=== PATIENT | female | born 1970 | race Two or more races ===

== ENCOUNTER 2019-01-10 23:26 | Emergency (ER) | payer OTHER, BC ==
[2019-01-10 23:38] VITALS: BP 126/60; PULSE 69; TEMP 98.3; BMI 28.1
[2019-01-11] MEDS ORDERED: ACETAMINOPHEN 1000 MG/100 ML VIAL (NON FORMULARY) IVPB ONE (00:48)
[2019-01-11] MEDS ORDERED: FAMOTIDINE 20 MG/50 ML IVPB 20 MG/50 ML MG IVPB ONE ×2 (00:48→00:54)
[2019-01-11] MEDS ORDERED: SODIUM CHLORIDE 0.9% 500 ML INFUS.BAG IV ONE (00:48)
[2019-01-11] MEDS ORDERED: MAG HYDROX/AL HYDROX/SIMETH 30 ML UNIT-DOSE CUP PO ONE (00:49)
[2019-01-11] MEDS ORDERED: MAG HYDROX/AL HYDROX/SIMETH 30 ML UNIT-DOSE CUP ONE (00:53)
[2019-01-11] MEDS ORDERED: ACETAMINOPHEN INJECTION 100 ML IVPB ONE (00:53)
--- NOTE | 2019-01-11 01:07 | PDOC ---
History of Present Illness - General Chief Complaint: Pain Stated Complaint: STOMACH PAIN - History of Present Illness Initial Comments: The pt is a 48F w/ a history of PUD who presents for evaluation of abdominal pain for 6 hours. The pain is cramping/burning, non-radiating, constant since it started, is associated with nausea, and was not relieved by the nexium that she tried. She denies fevers/chills, V/C/D, chest pain, trouble breathing, dysuria, hematuria, or blood in her stool 01/11/19 01:28 Past History - Past Medical History Allergies/Adverse Reactions: Allergies Allergy/AdvReac Type Severity Reaction Status Date / Time No Known Drug Allergies Allergy Verified 01/10/19 23:38 Home Medications: Ambulatory Orders Ranitidine [Zantac -] 300 mg PO DAILY PRN #20 tablet 01/11/19 COPD: No - Suicide/Smoking/Psychosocial Hx Smoking History: Never smoked Have you smoked in the past 12 months: No Information on smoking cessation initiated: No Hx Alcohol Use: No Drug/Substance Use Hx: No Substance Use Type: Alcohol Review of Systems - Review of Systems Able to Perform ROS?: Yes Comments:: GENERAL/CONSTITUTIONAL: No fever or chills. No weakness HEAD, EYES, EARS, NOSE AND THROAT: No change in vision. No ear pain or discharge. No sore throat CARDIOVASCULAR: No chest pain or shortness of breath RESPIRATORY: Denies cough, hemoptysis GENITOURINARY: No dysuria, frequency, or change in urination MUSCULOSKELETAL: No joint or muscle swelling or pain. No neck or back pain SKIN: No rash NEUROLOGIC: No headache, vertigo, loss of consciousness, or change in strength/ sensation ENDOCRINE: No increased thirst. No abnormal weight change HEMATOLOGIC/LYMPHATIC: No anemia, easy bleeding, or history of blood clots ALLERGIC/IMMUNOLOGIC: No hives or skin allergy Is the patient limited [place] proficient: No *Physical Exam - Vital Signs Last Vital Signs Temp Pulse Resp BP Pulse Ox 98.3 F 69 19 126/60 100 01/10/19 23:36 01/10/19 23:36 01/10/19 23:36 01/10/19 23:36 01/10/19 23:36 - Physical Exam Comments: GENERAL: Awake, alert, and oriented to person/place/time, in no acute distress HEAD: No signs of trauma, normocephalic, atraumatic EYES: PERRLA, EOMI, sclera anicteric, conjunctiva clear ENT: Hearing grossly normal, nares patent, oropharynx clear without exudates. No uvular deviation. Moist mucosa LUNGS: No distress, speaks full sentences, clear to auscultation bilaterally HEART: Regular rate and rhythm, normal S1 and S2, no murmurs appreciated, peripheral pulses normal and equal bilaterally ABDOMEN: Soft, non-distended, mild epigastric TTP without rebound or guarding EXTREMITIES: Normal inspection, Normal range of motion, no edema. No clubbing or cyanosis NEUROLOGICAL: Cranial nerves II through XII grossly intact. Normal speech, normal gait, no focal sensorimotor deficits SKIN: Warm, Dry ED Treatment Course - LABORATORY CBC & Chemistry Diagram: 01/11/19 00:50 01/11/19 00:50 Medical Decision Making - Medical Decision Making The pt is a 48F w/ a history of PUD who presents for evaluation of 6 hours of burning epigastric pain Ddx includes PUD, gastritis/gastroenteritis, pancreatitis, biliary disease, GERD ; ACS/AAA considered but less likely as patient w/o chest pain, SOB, lightheadedness, VS wnl, and no history of HTN/cardiac disease ED Course Labs sent Maalox, Pepcid, Ofrimev for symptomatic relief 1L NS No leukocytosis No anemia Lytes wnl LFTs unremarkable Lipase wnl Patient feels improved s/p meds Plan for D/C w/ PCP f/u Rx for Zantac sent to pt's pharmacy Discharge instructions and return precautions given Pt in agreement and verbalized understanding Dispo: home *DC/Admit/Observation/Transfer Diagnosis at time of Disposition: Abdominal pain Qualifiers: Abdominal location: unspecified location Qualified Code(s): R10.9 - Unspecified abdominal pain - Discharge Dispostion Disposition: HOME Condition at time of disposition: Improved Decision to Admit order: No - Prescriptions Prescriptions: Ranitidine [Zantac -] 300 mg PO DAILY PRN #20 tablet PRN Reason: Dyspepsia - Referrals Referrals: [facility] [Provider Group] Ramakrishna Lea MD [Staff Physician] - Trudy Hill MD [Staff Physician] - - Patient Instructions Printed Discharge Instructions: DI for Dyspepsia Additional Instructions: You were seen in the Emergency Department for evaluation of abdominal pain. Your labs were unremarkable. A prescription for Zantac was sent to the pharmacy you specified, take as directed. Follow up with gastroenterology (referrals provided) and your primary care provider. Review the handout provided at discharge. Return to the Emergency Department if you develop worsening symptoms , inability to tolerate food, or any new/concerning symptoms. - Post Discharge Activity
[2019-01-11 01:22] LABS: BASO % 0.9 % (0-2.0); EOS % 7.1 % (0-4.5); HEMATOCRIT 35.1 % (32.4-45.2); HEMOGLOBIN 11.8 GM/dL (10.7-15.3); LYMPH % 31.4 % (8-40); MCH 30.5 pg (25.7-33.7); MCHC 33.6 g/dl (32.0-36.0); MEAN CELL VOLUME 90.9 fl (80-96); MEAN PLT VOLUME 11.2 fl (7.5-11.1); MONO % 8.6 % (3.8-10.2); PLATELET COUNT 166 K/MM3 (134-434); RBC 3.87 M/mm3 (3.60-5.2); RDW 12.5 % (11.6-15.6); WHITE BLOOD COUNT 6.7 K/mm3 (4.0-10.0)
[2019-01-11 01:54] LABS: ALBUMIN 3.5 g/dl (3.4-5.0); BILIRUBIN,TOTAL 0.3 mg/dL (0.2-1); CALCIUM 8.6 mg/dL (8.5-10.1); CREATININE 0.8 mg/dL (0.55-1.3); POTASSIUM 4.1 mmol/L (3.5-5.1); TOT PROT 6.5 g/dl (6.4-8.2)
--- NOTE | 2019-01-12 14:18 | EKG ---
Test Reason : Blood Pressure : / mmHG Vent. Rate : 067 BPM Atrial Rate : 067 BPM P-R Int : 148 ms QRS Dur : 070 ms QT Int : 404 ms P-R-T Axes : 070 053 051 degrees QTc Int : 426 ms NORMAL SINUS RHYTHM NORMAL ECG WHEN COMPARED WITH ECG OF 29-JUN-2014 16:17, NO SIGNIFICANT CHANGE WAS FOUND Confirmed by MD Eid Daniel ([id number]) on 01/12/2019 2:18:18 PM Referred By: Confirmed By:Triston Eid MD
--- NOTE | 2019-01-13 01:28 | PDOC ---
Documentation entered by Rob Pearson SCRIBE, acting as scribe for Muriel Kebede MD. Muriel Kebede MD: This documentation has been prepared by the Michel andrea Nirvannie, SCRIBE, under my direction and personally reviewed by me in its entirety. I confirm that the documentation accurately reflects all work, treatment, procedures, and medical decision making performed by me. Attending Attestation - Resident Resident Name: Shadi Mccray - ED Attending Attestation I have performed the following: I have examined & evaluated the patient, The case was reviewed & discussed with the resident, I agree w/resident's findings & plan - HPI HPI: 01/11/19 01:25 The patient is a 48 year old female, with a significant past medical history of , who presents to the emergency department with, epigastric burning and cramping onsetting at 7pm after eating [place] food. She denies recent fevers, chills, headache or dizziness. She denies recent dysuria, frequency, urgency or hematuria. She denies recent chest pain or shortness of breath. Allergies: NKDA - Physicial Exam PE: 01/11/19 01:26 GENERAL: Awake, alert, and fully oriented, in no acute distress HEAD: No signs of trauma EYES: PERRLA, EOMI, sclera anicteric, conjunctiva clear ENT: Auricles normal inspection, hearing grossly normal, nares patent, oropharynx clear without exudates. Moist mucosa NECK: Normal ROM, supple, no lymphadenopathy, JVD, or masses LUNGS: Breath sounds equal, clear to auscultation bilaterally. No wheezes, and no crackles HEART: Regular rate and rhythm, normal S1 and S2, no murmurs, rubs or gallops ABDOMEN: Soft, nontender, normoactive bowel sounds. No guarding, no rebound. No masses EXTREMITIES: Normal range of motion, no edema. No clubbing or cyanosis. No cords, erythema, or tenderness NEUROLOGICAL: Cranial nerves II through XII grossly intact. Normal speech SKIN: Warm, Dry, normal turgor, no rashes or lesions noted. - Medical Decision Making 01/13/19 05:51 Pt has normal labs and feeling better with treatment in the ER, and she will be discharged home.
== END 2019-01-11 02:56 | disposition home or self-care (01) ==
LOC: JER 23:26
PROC: 3E033GC Introduction of Other Therapeutic Substance into Peripheral Vein, Percutaneous Approach (ICD-10-PCS; principal; 2019-01-10)
PROC: 3E033NZ Introduction of Analgesics, Hypnotics, Sedatives into Peripheral Vein, Percutaneous Approach (ICD-10-PCS; 2019-01-10)
DX: R10.9 Unspecified abdominal pain (principal)
CPT/HCPCS: 36415; 80053; 83690; 85025; 93005; 93010; 99282-25; J0131

== ENCOUNTER 2020-10-31 09:26 | Emergency (ER) | payer OTHER, BC | END 2020-10-31 10:15 | disposition home or self-care (01) | LOC: JVIRT 09:26 | DX: Z11.52 Encounter for screening for COVID-19 (principal) | CPT/HCPCS: C9803; G2251-GT; Q3014-GT; U0003 ==